=== PATIENT | female | born 1950 | race Caucasian/White ===

== ENCOUNTER 2018-01-11 18:29 | Emergency (ER) | payer OTHER, BC ==
--- NOTE | 2018-01-11 19:14 | EDPHY ---
H & P Time Seen by Provider: 01/11/18 18:52 HPI/ROS: HPI Abdominal pain. 67-year-old female by private vehicle. This patient complains of right upper quadrant abdominal pain which she describes as achy since this morning. She reports it is better now. No associated nausea or vomiting. Denies any urinary complaints. No hematuria. No diarrhea. No bloody or melenic stool. No prior history of abdominal surgeries. Last bowel movement was about 2 hr ago. Her brother is a radiologist and told her to come to the emergency department for an ultrasound. ROS: Constitutional: No fever, no chills. No weakness. Respiratory: No cough. No shortness of breath. Cardiac: No chest pain, no palpitations. Gastrointestinal: As above, no vomiting, no diarrhea. Genitourinary: No hematuria. No dysuria or increased frequency with urination. Musculoskeletal: No back pain. No neck pain. No myalgias or arthralgias. Skin: No rashes. Neurological: No headache. No focal weakness or altered sensation. Past medical history: Stomach ulcers. Social history: Here by herself. Nonsmoker. No alcohol. Physical Exam: General Appearance: Alert, no distress. This patient is responding to questions appropriately and in full sentences. This patient appears well- hydrated and well-nourished. Eyes: Pupils equal and round no pallor or injection. No lid edema, erythema or injection. Respiratory: There are no retractions, lungs are clear to auscultation with good air movement bilaterally. Cardiovascular: Regular rate and rhythm. No murmur. Gastrointestinal: Abdomen is soft and without significant tenderness on palpation of the right upper quadrant and throughout, no masses, bowel sounds normal. No focal tenderness at McBurney's point. No Alcocer sign. Neurological: Motor sensory function is grossly intact. Cranial nerves are normal. Gait is normal. Skin: Warm and dry, no rashes. Musculoskeletal: Neck is supple and nontender. Extremities are symmetrical. All joints range without pain or impingement. Psychiatric: No agitation. No depression. Database: EKG: Imaging: Right upper quadrant ultrasound: Gallbladder unremarkable. Bilateral mild hydronephrosis. Simple cysts in the liver. Otherwise a normal study. Results were discussed with staff radiologist. Procedures: Emergency department course: Patient's vital signs reviewed. She is hypertensive. I feel she is very anxious being in the emergency department. She refuses an IV or any blood work. She states that she will only consent to an ultrasound. I discussed the reasoning for blood work to evaluate her LFTs in her lipase. She understands this in my professional opinion. She has capacitance to make decisions in my professional opinion. She declines any other workup outside of an ultrasound. 9:10 p.m., patient re-evaluated. Resting comfortably at this time. She has no pain. Repeat abdominal exam she is soft, nontender nondistended. I discussed the results of her ultrasound. She feels comfortable going home at this time and is requesting discharge. Follow-up and return to emergency department precautions were reviewed with her. All of her questions were answered. She was discharged from the emergency department in good condition. Differential Diagnosis: The differential diagnosis on this patient includes but is not limited to gallstones, hepatitis. Acute cholecystitis unlikely. This represents a partial list of diagnoses considered. These considerations are based on history , physical exam, past history, reassessment and diagnostic testing. Smoking Status: Never smoked Constitutional: Initial Vital Signs Temperature (C) 36.6 C 01/11/18 18:33 Heart Rate 88 01/11/18 18:33 Respiratory Rate 18 01/11/18 18:33 Blood Pressure 193/108 H 01/11/18 18:33 O2 Sat (%) 98 01/11/18 18:33 O2 Delivery Mode Room Air Allergies/Adverse Reactions: "EVERYTHING" Allergy (Uncoded 01/11/18 18:32) Home Medications: Medication Instructions Recorded NK [No Known Home Meds] 01/11/18 Medical Decision Making - Diagnostics Imaging Results: Imaging Impressions Abdomen Ultrasound 01/11/18 19:04 Impression: 1. Bilateral [id number] hydronephrosis, despite visualization of both ureteral jets. Unclear if this may be related to urinary reflux. 2. Simple cysts in the liver. Findings and recommendations discussed with Olvin Shannon MD at 2045 hour, 01/11/2018. Departure - Departure Disposition: Home, Routine, Self-Care Clinical Impression: Abdominal pain Condition: Good Instructions: Acute Abdominal Pain (ED) Additional Instructions: Read and follow provided instructions. Follow-up with your primary care physician on Monday for re-evaluation as discussed. They will have access to your ultrasound report. Please have this person review that report. Return to the emergency department for worsening abdominal pain, vomiting, fever , blood in your stool or other serious concerns. Referrals: Kobe Fraser MD [Primary Care Provider] - As per Instructions
[2018-01-11] MEDS ORDERED: NS 1,000 ML IV ONE ×2 (21:11)
[2018-01-11] MEDS ORDERED: ONDANSETRON 4 MG/2 ML VIAL IVP ONE (21:11)
[2018-01-11] MEDS ORDERED: HYDROmorphONE/DILAUDID 2 MG/ML INJ IVP ONE (21:11)
[2018-01-11 21:42] VITALS: BP 173/94
== END 2018-01-11 21:32 | disposition home or self-care (01) ==
DX: R10.11 Right upper quadrant pain (principal)

== ENCOUNTER → 2018-05-01 | Outpatient (CLI) | payer OTHER, BC | LOC: FIMAGING 12:30 → EDSTATUS 12:31 | PROVIDERS: ATTEND Internal Medicine | DX: R05 Cough (principal) ==